=== PATIENT | female | born 1975 | race Caucasian/White ===

== ENCOUNTER 2016-10-29 19:29 | Emergency (ER) | payer MEDICAID ==
[~2016-10-29 19:29] MED LIST: COZAAR DPS25 MG PO; DELTASONE DPS1 MG PO; DESYREL-DPS50 MG PO; FLEXERIL-DPS10 MG PO; GLUCOPHAGE-DPS500 MG PO; HYDRODIURIL-DPS25 MG PO; MOTRIN-DPS800 MG PO; NEURONTIN DPS300 MG PO; OMNICEF DPS300 MG PO; OXYCODONE-ACET1 EAC1 PO; TYLENOL DPS325 MG PO; XANAX DPS0.25 MG PO
--- NOTE | 2016-11-07 07:29 | ER ---
ADMIT: 10/29/2016 RM/LOC: ER [facility] MR#: [id number] [id number] [place], [place] [id number] VAL[address] CHANDLER [address] [place] [address] Emergency Room Report SEX: F AGE: 40 : 1975 DATE: 10/29/2016 CHIEF COMPLAINT: Nausea, vomiting, and diarrhea. HISTORY OF PRESENT ILLNESS: The patient is a 40-year-old female, who comes in complaining of the aforementioned symptoms. She states that she was exposed to her grandchildren who had similar symptoms few days ago. She has been able to keep some fluids down but has had bouts of vomiting through the day. Really has no other complaints. PAST MEDICAL HISTORY: Significant for diabetes, for which she takes metformin. Depression. PAST SURGICAL HISTORY: Hysterectomy and . ALLERGIES: SEE NURSE'S NOTE. SOCIAL HISTORY: The patient smokes half a pack a day. PHYSICAL EXAMINATION: VITAL SIGNS: Unremarkable. HEENT: The patient is alert, no distress. HEART: Regular rate and rhythm. LUNGS: Clear to auscultation. ABDOMEN: Soft. There is some mild epigastric tenderness. SKIN: Warm and dry. EMERGENCY DEPARTMENT COURSE: The patient was given Zofran which improved her nausea. She was given some GI cocktail. She does have a history of GERD also and said she did feel like her GERD symptoms were bothering her. She was feeling better at the time of discharge. She was sent home to use Zofran as needed. Encouraged good fluid intake and follow up with regular physician. DIAGNOSES: Nausea, vomiting, and diarrhea. Everette Cohen MD/ yan JOB #: [id number] CC: Everette Cohen MD, Attending Physician Hattie Robert MD, Family Physician
== END 2016-10-29 21:35 | disposition home or self-care (01) ==
LOC: ER 19:29
DX: R11.2 Nausea with vomiting, unspecified (principal); R19.7 Diarrhea, unspecified; F32.9 Major depressive disorder, single episode, unspecified; I10 Essential (primary) hypertension; E11.9 Type 2 diabetes mellitus without complications; F17.210 Nicotine dependence, cigarettes, uncomplicated; Z90.710 Acquired absence of both cervix and uterus; Z79.82 Long term (current) use of aspirin; Z88.8 Allergy status to other drugs, medicaments and biological substances

== ENCOUNTER → 2016-11-09 | Outpatient (CLI) | payer MEDICAID | END | disposition home or self-care (01) | LOC: PTH.S 11-02 16:00 | DX: E78.5 Hyperlipidemia, unspecified (principal) ==

== ENCOUNTER 2016-11-17 21:39 | Emergency (ER) | payer MEDICAID ==
--- NOTE | 2016-11-20 04:09 | ER ---
ADMIT: 11/17/2016 RM/LOC: ER [facility] MR#: [id number] [id number] [place], [place] [id number] VALENTINA CHANDLER [address] [place] [address] Emergency Room Report SEX: F AGE: 40 : 1975 DATE: 11/17/2016 CHIEF COMPLAINT: Fall, injury to left side. HISTORY OF PRESENT ILLNESS: This is a pleasant 40-year-old female, who presents with her and daughter following a fall she sustained at home. The patient states she has not been feeling the best the last couple of days, complaining of some dizziness, and states she has been checking her blood sugars and all of them have been okay. States she did not eat supper tonight. When she went to stand, she had some dizziness and fell on her left side. She fell from a standing position. Denies hitting her head. No loss of consciousness. At present, she says she has some dizziness, lightheadedness. Pain is primarily in her left hip and low back. She does have history of chronic low back pain secondary to scoliosis. Denies any recent illness, fever, shortness of breath, cough, nausea, vomiting. Does admit to some blurring in her vision. PAST MEDICAL HISTORY: Significant for diabetes, hypertension, back pain as above, bipolar, and a partial hysterectomy. COURSE IN THE EMERGENCY ROOM: GENERAL: Patient was seen and examined. She is afebrile and nontoxic. She is in mild distress. She is anxious. HEAD: Has no evidence of trauma. NECK: Nontender. She has a painless range of motion. EYES: Pupils are equal and reactive to light. Extraocular muscles are intact. RESPIRATIONS: Airway is intact. Chest is nontender. No ecchymosis. Breath sounds are normal. HEART: Sounds are normal. ABDOMEN: Soft and nondistended. NEURO: She is oriented x4. Sensation is equal in the upper and lower extremities. MOTOR: Normal, although she moves all 4 extremities she does have significant pain with movement of her left lower extremity. SKIN: Intact. Warm and dry. BACK: No vertebral tenderness. She does have some perimuscular spasm and tenderness on exam. PELVIS: Stable. She does have some tenderness to palpation over the lateral hip. EXTREMITIES: No evidence of any pedal edema. She was unable to bear weight at the scene. She is given 1 mg of Dilaudid as well as 15 mg of Toradol IV as well as Zofran 4 mg IV. Left hip x-ray AP and lateral were reviewed, no acute fracture or dislocation. I was able to get her up and ambulate in the department. She took several steps with the use of a wheeled walker. IMPRESSION: 1. Left hip lateral contusion. 2. Chronic low back pain. ADMIT: 11/17/2016 RM/LOC: [facility] MR#: [id number] [facility] [address] [id number] [address] [place] [address] Emergency Room Report SEX: F AGE: 40 : 1975 DISPOSITION: Did provide the patient a script for [place] 5/325 one to two tabs p.o. q.4-6 hours as needed for pain #16. She was sent home with 4 from our pharmacy. She is to apply ice three times a day for 20 minutes of time as needed for pain for the next 2 days before transitioning to heat. She should use her walker or cane as needed when she ambulates. She needs to seek help if she feels like she is unable to transfer on her own. She is to follow up with Dr. Robert if this pain is not improving. She is to use caution when using the narcotic pain medication. Caution her not to drive or make important decisions while using this medication. She can continue to use ibuprofen as needed if she has breakthrough pain. Questions were sought and answered to the best of my ability and to the patient's satisfaction. She was discharged in stable condition. YURY Louis / Bo Crain MD / yan JOB #: [id number] CC: Bo Crain MD, Attending Physician Hattie Robert MD, Family Physician
== END 2016-11-18 00:15 | disposition home or self-care (01) ==
LOC: ER 21:39
DX: S70.02XA Contusion of left hip, initial encounter (principal); G89.29 Other chronic pain; M54.5 Low back pain; I10 Essential (primary) hypertension; F31.9 Bipolar disorder, unspecified; E11.9 Type 2 diabetes mellitus without complications; Z90.710 Acquired absence of both cervix and uterus; Z79.84 Long term (current) use of oral hypoglycemic drugs; Z88.6 Allergy status to analgesic agent; W19.XXXA Unspecified fall, initial encounter; Y92.009 Unspecified place in unspecified non-institutional (private) residence as the place of occurrence of the external cause

== ENCOUNTER 2016-12-28 10:18 | Emergency (ER) | payer MEDICAID ==
--- NOTE | 2017-01-24 16:41 | ER ---
ADMIT: 12/28/2016 RM/LOC: ER [facility] MR#: [id number] [id number] [place], [place] [id number] [address] [place] [address] Emergency Room Report SEX: F AGE: 41 : 1975 DATE: 12/28/2016 SUBJECTIVE: This patient comes in the ER because she has pain when she urinates. Pain in her low belly and going into her low back. She is nauseated and has vomited 2 times. Has had no diarrhea. On physical exam, patient is tender to palpation right above the pubic symphysis and bilateral CVA. Her vital signs are normal. IV of normal saline, she was given 1 L of bolus with Rocephin 2 g IV. White count was 10.9, hemoglobin 11.0. Urinalysis showed 510 wbc's. Urine culture was ordered. After the Rocephin, she was able to keep fluids down without any difficulty and felt quite a bit better. We discharged her with Cipro 500 mg and Zofran. She is to follow up with Dr. Robert as needed. Return to the ER if not keeping fluids down. Please see my T-sheet. YURY Dupree / Dani Guardado MD / modl JOB #: [id number] CC: Dani Guardado MD, Attending Physician Hattie Robert MD, Family Physician
== END 2016-12-28 12:40 | disposition home or self-care (01) ==
LOC: ER 10:18
DX: N39.0 Urinary tract infection, site not specified (principal); F17.210 Nicotine dependence, cigarettes, uncomplicated; I10 Essential (primary) hypertension; E11.9 Type 2 diabetes mellitus without complications; F32.9 Major depressive disorder, single episode, unspecified; F43.10 Post-traumatic stress disorder, unspecified; Z79.84 Long term (current) use of oral hypoglycemic drugs; Z79.899 Other long term (current) drug therapy